=== PATIENT | male | born 1960 | race Caucasian/White ===

== ENCOUNTER 2017-07-22 16:06 | Emergency (ER) | payer OTHER, MEDICAID ==
[~2017-07-22] VITALS: Ht 180.3 cm; Wt 104.7 kg
[~2017-07-22 16:06] MED LIST: DEPA500T OR; LORTA5 PO; LOTE10TA PO; OMEP20CA5 PO; VENL25TA14 PO; ZOCO40TA PO
[2017-07-22 16:11] VITALS: BP 182/84; PULSE 74; RESP 16; TEMP 98; O2SAT 98
[2017-07-22] MEDS ORDERED: BENA10TA PO (16:26)
[2017-07-22] MEDS ORDERED: PRIL20TA2 PO (16:26)
[2017-07-22] MEDS ORDERED: POTA-163 PO (16:26)
[2017-07-22] MEDS ORDERED: SERT-132 PO (16:26)
[2017-07-22] MEDS ORDERED: LAMO100 PO (16:26)
[2017-07-22] MEDS ORDERED: SIMV40TA PO (16:26)
[2017-07-22] MEDS ORDERED: TETANUS/DIPHTHERIA TOXOID ADULT 0.5 ML VIAL IM ONE (16:45)
--- NOTE | 2017-07-22 17:34 | RADRPT ---
EXAM DATE: 07/22/2017 5:21 PM EDT AGE/SEX: 57 years / Male INDICATIONS: Trauma. Fell and hit head. Head and neck pain. CLINICAL DATA: This is the patient's initial encounter. Patient reports that signs and symptoms have been present for 1 day and indicates a pain score of 8/10. MEDICAL/SURGICAL HISTORY: Hypertension. Asthma. Gastroesophageal reflux disease. None. RADIATION DOSE: 65.37 CTDI (mGy) COMPARISON: [facility], CT BRAIN W/O CONTRAST, 10/13/2012. . TECHNIQUE: CT of the head without contrast. Using automated exposure control and adjustment of the mA and/or kV according to patient size, radiation dose was kept as low as reasonably achievable to ob tain optimal diagnostic quality images. FINDINGS: Cerebrum: The ventricles are normal for age. No evidence of midline shift, mass lesion, hemorrhage or acute infarction. No extraaxial fluid collections are seen. Posterior Fossa: The cerebellum and brainstem are intact. The 4th ventricle is midline. The cerebe llopontine angle is unremarkable. Extracranial: The visualized portion of the orbits is intact. Skull: The calvaria is intact. No evidence of skull fracture. CONCLUSION: 1. No acute intracranial abnormalities. Electronically signed by: Titi Castaneda MD 07/22/2017 5:32 PM EDT
--- NOTE | 2017-07-22 17:36 | RADRPT ---
EXAM DATE: 07/22/2017 5:22 PM EDT AGE/SEX: 57 years / Male INDICATIONS: Trauma. Fell and hit head. Head and neck pain. CLINICAL DATA: This is the patient's initial encounter. Patient reports that signs and symptoms have been present for 1 day and indicates a pain score of 8/10. MEDICAL/SURGICAL HISTORY: Hypertension. Asthma. Gastroesophageal reflux disease. None. RADIATION DOSE: 26.49 CTDI (mGy) COMPARISON: [facility], CT CERVICAL SPINE W/O CONTRAST, 10/13/2012. . TECHNIQUE: Contiguous axial images were obtained using helical multirow detector technique. The vol umetric data was post-processed with multiplanar reconstruction in oblique axial, sagittal, and coron al planes. Using automated exposure control and adjustment of the mA and/or kV according to patient s ize, radiation dose was kept as low as reasonably achievable to obtain optimal diagnostic quality ami ges. FINDINGS: No acute fracture or spondylolisthesis. Moderate degenerative disc disease. Mild AP canal stenosis fr om C3 through C7. CONCLUSION: 1. No acute fracture. Moderate degenerative disc disease. Multilevel mild AP canal stenosis. Electronically signed by: Titi Castaneda MD 07/22/2017 5:35 PM EDT
[2017-07-22] MEDS ORDERED: GELATIN 12 MM/7 MM FOAM TOPICAL ONE (18:45)
--- NOTE | 2017-07-22 18:45 | PD ---
HPI Chief Complaint: Fall Time Seen by Provider: 16:27 Travel History International Travel<30 days: No Contact w/Intl Traveler<30days: No Traveled to known affect area: No History of Present Illness HPI 57-year-old male here with laceration to his scalp. Patient reports [place] falling backwards hitting his head on the boat trailer. There was no loss of consciousness. Patient is not anticoagulated. He reports generalized headache and neck pain. Symptom severity is moderate. No aggravating or alleviating factors. Denies any other injuries. Denies chest pain, shortness of breath, abdominal pain, paresthesia or weakness of the extremities. PFSH Past Medical History Asthma: Yes ( A CHILD NOT CURRENTLY) Blood Disorders: No Bipolar Disorder: Yes Anxiety: Yes Depression: Yes Cancer: No Cardiovascular Problems: Yes (FAM HX NOT PATIENT AT THIS TIME) High Cholesterol: Yes Diabetes: No Diminished Hearing: No Endocrine: No Gastrointestinal Disorders: Yes (GERD) GERD: Yes Genitourinary: Yes (FREQUENCY) Hypertension: Yes Neurologic: Yes (HEADACHE R/T ACCIDENT) Psychiatric: Yes (BIPOLAR-ON MEDS) Reproductive: No Respiratory: Yes Thyroid Disease: No Tetanus Vaccination: Unknown Past Surgical History Other Surgery: Yes (DEVIATED SEPTUM REPAIR) Social History Alcohol Use: Yes (occ) Tobacco Use: No Substance Use: No Allergies-Medications (Allergen,Severity, Reaction): Coded Allergies: aspirin (Unverified Allergy, Severe, Anaphylaxis, 07/22/17) Reported Meds & Prescriptions Reported Meds & Active Scripts Active Reported Potassium Chloride ER (Potassium Chloride) 20 Meq Tab 20 Meq PO DAILY Simvastatin 40 Mg Tab 40 Mg PO HS Lamictal (Lamotrigine) 100 Mg Tab 100 Mg PO DAILY Benazepril (Benazepril HCl) 10 Mg Tab 10 Mg PO DAILY Sertraline (Sertraline HCl) 50 Mg Tab 50 Mg PO DAILY Prilosec (Omeprazole Magnesium) 20 Mg Tab 1 Tab PO DAILY Review of Systems Except as stated in HPI: all other systems reviewed are Neg General / Constitutional: No: Fever Eyes: No: Visual changes HENT: No: Headaches Cardiovascular: No: Chest Pain or Discomfort Respiratory: No: Shortness of Breath Gastrointestinal: No: Abdominal Pain Genitourinary: No: Dysuria Physical Exam Narrative GENERAL: Alert and well-appearing 57-year-old male SKIN: Skin tear and laceration to the parietal region of the scalp bleeding is well controlled. HEAD: Normocephalic. EYES: Pupils equal and round. EOMs intact. No injection or drainage. ENT: No nasal bleeding or discharge. Mucous membranes pink and moist. NECK: Trachea midline. No JVD. Generalized posterior neck pain including midline spine. No step-off deformity. CARDIOVASCULAR: Regular rate and rhythm. RESPIRATORY: No accessory muscle use. Clear to auscultation. Breath sounds equal bilaterally. GASTROINTESTINAL: Abdomen soft, non-tender, nondistended. Hepatic and splenic margins not palpable. MUSCULOSKELETAL: Extremities without clubbing, cyanosis, or edema. No obvious deformities. NEUROLOGICAL: Awake and alert. No obvious cranial nerve deficits. Motor grossly within normal limits. Five out of 5 muscle strength in the arms and legs. Normal speech. PSYCHIATRIC: Appropriate mood and affect; insight and judgment normal. Data Data Last Documented VS Vital Signs Date Time Temp Pulse Resp B/P (MAP) Pulse Ox O2 Delivery O2 Flow Rate FiO2 07/22/17 16:11 98.0 74 16 182/84 (116) [address] Brain W/O Iv Contrast(Rout) (07/22/17 ) Ct Cerv Spine W/O Contrast (07/22/17 ) Tetanus/Diphtheria Tox Adult (Tetanus/Di (07/22/17 16:45) Gelatin 12 Mm/7 Mm Top (Gelfoam 12 Mm/7 (07/22/17 18:45) MDM Medical Decision Making Medical Screen Exam Complete: Yes Emergency Medical Condition: Yes Differential Diagnosis Scalp laceration, ICH, cervical strain versus cervical fracture Narrative Course 57-year-old male here with scalp laceration after falling from a standing position. He has normal neurologic exam. CT brain: No intracranial and normality CT cervical spine: No fracture Laceration repair performed. Patient is stable and ready for discharge Procedures Procedure Narrative LACERATION LOCATION: Scalp LENGTH: Wound #1 3 cm, wound #2 3 cm, wound #3 3 cm skin tear NUMBER OF STITCHES/MIRA: 11 total REPAIR: The area of the laceration was prepped with Betadine and sterilely draped. The laceration was infiltrated with 1% lidocaine. The wound was copiously irrigated and explored without evidence of foreign body, tendon injury or neurovascular injury. The wound was closed using 5-0 Ethilon. This was a single layer repair. A sterile dressing was applied. The patient was advised to keep the dressing clean and dry. Patient tolerated the procedure well. Diagnosis Primary Impression: Scalp laceration Qualified Codes: S01.01XA - Laceration without foreign body of scalp, initial encounter Referrals: Primary Care Physician Additional Instructions: Sutures need to be removed in 7-10 days. Keep the dressing in place for 24 hours. Follow-up with her primary doctor. Return if you have new or worsening symptoms. Disposition: 01 DISCHARGE HOME Condition: Stable Roseamry Da Silva Jul 22, 2017 18:44
== END 2017-07-22 18:56 | disposition home or self-care (01) ==
LOC: PHEFT 16:06
DX: S01.01XA Laceration without foreign body of scalp, initial encounter (principal); R51 Headache; M50.31 Other cervical disc degeneration, high cervical region; M50.321 Other cervical disc degeneration at C4-C5 level; M50.322 Other cervical disc degeneration at C5-C6 level; M50.323 Other cervical disc degeneration at C6-C7 level; J45.909 Unspecified asthma, uncomplicated; F31.9 Bipolar disorder, unspecified; F41.9 Anxiety disorder, unspecified; E78.00 Pure hypercholesterolemia, unspecified; K21.9 Gastro-esophageal reflux disease without esophagitis; I10 Essential (primary) hypertension; W01.198A Fall on same level from slipping, tripping and stumbling with subsequent striking against other object, initial encounter; Z23 Encounter for immunization; Z79.899 Other long term (current) drug therapy; Z88.6 Allergy status to analgesic agent
CPT/HCPCS: 12004; 70450; 72125; 90471; 90714